=== PATIENT | male | born 2000 ===

== ENCOUNTER 2021-02-13 12:34 | Emergency (ER) | payer OTHER, SELFPAY ==
[2021-02-13] MEDS ORDERED: Sodium Chloride 0.9% 1,000 ML ONE (12:54)
[2021-02-13 13:03] LABS: Bilirubin Negative (Negative); Blood, Urine Negative (Negative); Clarity Clear (Clear); Glucose, Urine (Dipstick) Negative (Negative); Ketone, Urine Negative (Negative); Leukocyte Negative (Negative); Nitrite Negative (Negative); Protein, Urine (Dipstick) Negative (Neg-Trace); Urobilinogen 0.2 mg/dL (Less than 2); pH, Urine 6.5 (5.0-9.0)
[2021-02-13] MEDS ORDERED: Acetaminophen 500 MG TAB ONE (13:23)
[2021-02-13] MEDS ORDERED: Ketorolac Tromethamine 30 MG/ML VIAL ONE (13:23)
== END 2021-02-13 14:25 | disposition home or self-care (01) ==
LOC: NAV ERS 12:34
DX: S06.0X0A Concussion without loss of consciousness, initial encounter (principal); V49.49XA Driver injured in collision with other motor vehicles in traffic accident, initial encounter
CPT/HCPCS: 70450; 72125; 81003; 96374; J1885; J7050